=== PATIENT | female | born 1985 | race Two or more races ===

== ENCOUNTER 2020-04-25 17:28 | Emergency (ER) | payer OTHER ==
[~2020-04-25] VITALS: Ht 172.7 cm; Wt 70.3 kg
== END 2020-04-25 21:45 | disposition home or self-care (01) ==
LOC: ER 17:28
DX: O20.8 Other hemorrhage in early pregnancy (principal); O43.891 Other placental disorders, first trimester; O30.031 Twin pregnancy, monochorionic/diamniotic, first trimester; Z3A.08 8 weeks gestation of pregnancy

== ENCOUNTER 2020-10-29 04:03 | Inpatient (IN) | payer OTHER ==
[~2020-10-29] VITALS: Ht 172.7 cm; Wt 1840.0 kg
[2020-11-01] MEDS ORDERED: NIFEDIPINE ER30 M1 (08:09)
[2020-11-01] MEDS ORDERED: GABAPENTIN600 MG (08:09)
[2020-11-01] MEDS ORDERED: INTEGRA PLUS C1 EACH (08:09)
[2020-11-01] MEDS ORDERED: ABANEU-SL TABL1 EACH (08:10)
== END 2020-11-01 19:07 | disposition home or self-care (01) | DRG 788 ==
LOC: LDR 04:03 → OB/GYN 04:03 → O/R 08:22 → OB/GYN 11:18
PROVIDERS: ADMIT Specialist; ATTEND Specialist
PROC: 4A1HXFZ Monitoring of Products of Conception, Cardiac Rhythm, External Approach (ICD-10-PCS; 2020-10-29)
PROC: 10D00Z1 Extraction of Products of Conception, Low, Open Approach (ICD-10-PCS; principal; 2020-10-29 08:00)
DX: O30.013 Twin pregnancy, monochorionic/monoamniotic, third trimester (principal); O90.81 Anemia of the puerperium; D64.9 Anemia, unspecified; Z3A.34 34 weeks gestation of pregnancy; Z37.2 Twins, both liveborn; Z20.822 Contact with and (suspected) exposure to COVID-19